=== PATIENT | female | born 1990 | race Two or more races ===

== ENCOUNTER 2022-07-08 11:07 | Emergency (ER) | payer OTHER ==
[~2022-07-08] VITALS: Ht 149.9 cm; Wt 69.4 kg
[2022-07-08] MEDS ORDERED: PRENA1 TRUE CO1 EACH PO (11:25)
== END 2022-07-08 19:37 | disposition home or self-care (01) ==
LOC: ER 11:07
DX: O20.9 Hemorrhage in early pregnancy, unspecified (principal); Z3A.00 Weeks of gestation of pregnancy not specified

== ENCOUNTER → 2023-12-30 08:11 | Outpatient (CLI) | payer OTHER ==
[~2023-12-30 08:11] MED LIST: PRENA1 TRUE CO1 EACH PO
== END | disposition home or self-care (01) ==
LOC: PRENATAL 08:11
PROVIDERS: ATTEND Obstetrics & Gynecology Maternal & Fetal Medicine
DX: O35.9XX0 Maternal care for (suspected) fetal abnormality and damage, unspecified, not applicable or unspecified (principal); O35.3XX0 Maternal care for (suspected) damage to fetus from viral disease in mother, not applicable or unspecified; O44.02 Complete placenta previa NOS or without hemorrhage, second trimester; Z3A.20 20 weeks gestation of pregnancy

== ENCOUNTER 2024-02-19 09:12 | Outpatient (CLI) | payer OTHER | END 2024-02-19 09:13 | disposition home or self-care (01) | LOC: PRENATAL 09:12 | PROVIDERS: ATTEND Obstetrics & Gynecology Maternal & Fetal Medicine | DX: O26.849 Uterine size-date discrepancy, unspecified trimester (principal); O24.419 Gestational diabetes mellitus in pregnancy, unspecified control; Z3A.28 28 weeks gestation of pregnancy ==

== ENCOUNTER 2024-03-19 09:19 | Outpatient (CLI) | payer OTHER | END 2024-03-19 09:20 | disposition home or self-care (01) | LOC: PRENATAL 09:19 | PROVIDERS: ATTEND Obstetrics & Gynecology Maternal & Fetal Medicine | DX: O26.849 Uterine size-date discrepancy, unspecified trimester (principal); O36.8199 Decreased fetal movements, unspecified trimester, other fetus; O24.419 Gestational diabetes mellitus in pregnancy, unspecified control; Z3A.33 33 weeks gestation of pregnancy ==

== ENCOUNTER 2024-04-15 10:10 | Outpatient (CLI) | payer OTHER | END 2024-04-15 10:11 | disposition home or self-care (01) | LOC: PRENATAL 10:10 | PROVIDERS: ATTEND Obstetrics & Gynecology Maternal & Fetal Medicine | DX: O26.849 Uterine size-date discrepancy, unspecified trimester (principal); O36.8199 Decreased fetal movements, unspecified trimester, other fetus; O24.419 Gestational diabetes mellitus in pregnancy, unspecified control; Z3A.36 36 weeks gestation of pregnancy ==

== ENCOUNTER 2024-05-06 17:29 | Inpatient (IN) | payer OTHER ==
[~2024-05-06] VITALS: Ht 152.4 cm; Wt 80.3 kg
[2024-05-06 17:40] VITALS: BP 134/75
[2024-05-06 18:03] VITALS: BP 134/75
[2024-05-06] MEDS ORDERED: AMPICILLIN SODIUM 2,000 MG VIAL IV SCH (18:19)
[2024-05-06 18:39] LABS: PH,URINE 6.5 (5.0-8.0); URINE APPEARANCE Cloudy; URINE BILIRRUBIN Negative (NEGATIVE); URINE BLOOD Negative; URINE COLOR Yellow; URINE GLUCOSE Negative (NEGATIVE); URINE KETONE Trace (NEGATIVE); URINE LEUKOCYTE Large; URINE NITRATE Negative
[2024-05-06 18:40] LABS: HEMATOCRIT 33.9 % (36.0-45.00); HEMOGLOBIN 11.4 g/dL (12.0-15.00); MEAN CORPUSCULAR HEMOGLOBIN 28.9 pg (27.00-32.0); MEAN CORPUSCULAR HGB CONC 33.6 g/dl (32.0-36.0); PLATELET COUNT 193 K/uL (150-450); RED BLOOD COUNT 3.94 M/uL (4.00-6.00)
[2024-05-06 18:43] LABS: URINE CAST 1.47 uL (0.0-1.40); URINE RBC 9.4 uL (0.0-20.8); URINE WBC 709.8 uL (0.0-23.2)
[2024-05-06 18:57] LABS: URINE BACTERIA > 9821.5 uL (0.0-1933); URINE EPITHELIAL CELLS > 201.7 uL (0.0-38.8); URINE PROTEIN 100 (NEGATIVE)
[2024-05-06 18:59] LABS: INR < 0.93; PARTIAL THROMBOPLASTIN TIME 23.5 SECONDS (22.0-34.0); PROTHROMBIN TIME 9.3 SECONDS (9.0-11.5)
[2024-05-06 19:03] LABS: ALBUMIN 2.4 gm/dL (3.4-5.0); BILIRUBIN TOTAL 0.31 mg/dL (0.3-1.2); CALCIUM 8.9 mg/dL (8.5-10.1); CREATININE SERUM 0.7 mg/dL (0.55-1.02); GFR 95.79; GLOBULINA 3.7 G/DL (2.4-3.5); POTASSIUM 4.48 mEq/L (3.5-5.1); TOTAL PROTEIN 6.1 gm/dL (6.4-8.2)
[2024-05-06] MEDS ORDERED: MISOPROSTOL 25 MCG TABLET VAG ONE (19:10)
[2024-05-06 23:16] VITALS: BP 139/74
[2024-05-07 04:00] VITALS: BP 113/67
[2024-05-07 07:22] VITALS: BP 123/67
[2024-05-07] MEDS ORDERED: OXYTOCIN 500 ML IV SCH (07:45)
[2024-05-07 11:24] VITALS: BP 127/76
[2024-05-07 15:00] VITALS: BP 112/51
[2024-05-07 19:12] VITALS: BP 136/82
[2024-05-07] MEDS ORDERED: CEFOXITIN SODIUM 2,000 MG VIAL IV SCH (21:30)
[2024-05-07] MEDS ORDERED: MORPHINE SULFATE 4 MG/ML CARTRIDGE IV PRN (23:00)
[2024-05-07] MEDS ORDERED: ONDANSETRON HCL 2 MG/ML VIAL IV PRN (23:00)
[2024-05-07] MEDS ORDERED: OXYTOCIN 1,000 ML IV SCH (23:00)
[2024-05-07] MEDS ORDERED: OXYTOCIN 10 UNITS/ML VIAL IV ONE (23:45)
[2024-05-07] MEDS ORDERED: ERYTHROMYCIN BASE OPHT 1GM EACH TUBE OP ONE (23:45)
[2024-05-07] MEDS ORDERED: MORPHINE SULFATE 4 MG/ML VIAL IV ONE (23:55)
[2024-05-08] MEDS ORDERED: MORPHINE SULFATE 4 MG/ML VIAL IV ONE (00:25)
[2024-05-08 03:00] VITALS: BP 127/73
[2024-05-08 03:55] LABS: HEMATOCRIT 31.7 % (36.0-45.00); HEMOGLOBIN 10.8 g/dL (12.0-15.00); MEAN CELL VOLUME 85.6 fL (80.00-100.00); MEAN CORPUSCULAR HEMOGLOBIN 29.1 pg (27.00-32.0); MEAN CORPUSCULAR HGB CONC 34.1 g/dl (32.0-36.0); PLATELET COUNT 211 K/uL (150-450); RED CELL DISTRIBUTION WIDTH 14.8 % (11.5-14.5)
[2024-05-08 08:00] VITALS: BP 120/68
[2024-05-08] MEDS ORDERED: PROMETHAZINE HCL 50 MG/ML AMPUL IV SCH (08:47)
[2024-05-08] MEDS ORDERED: SIMETHICONE 125 MG CAPSULE PO SCH (09:00)
[2024-05-08] MEDS ORDERED: NAPROXEN 500 MG TABLET PO SCH (09:00)
[2024-05-08] MEDS ORDERED: ACETAMINOPHEN WITH CODEINE 1 UDTAB TABLET PO PRN (12:00)
[2024-05-08] MEDS ORDERED: ACETAMINOPHEN WITH CODEINE 1 UDTAB TABLET PO SCH (12:00)
[2024-05-08 16:00] VITALS: BP 102/65
[2024-05-09 01:29] VITALS: BP 105/65
[2024-05-09 08:49] VITALS: BP 110/72
[2024-05-09 15:44] VITALS: BP 105/68
[2024-05-10 00:55] VITALS: BP 138/85
[2024-05-10 08:08] VITALS: BP 131/86
[2024-05-10] MEDS ORDERED: Tylenol #3 PO (12:03)
[2024-05-10] MEDS ORDERED: NAPR500T14 PO (12:03)
== END 2024-05-10 12:08 | disposition home or self-care (01) | DRG 788 ==
LOC: LDR 17:29 → OB/GYN 17:29
PROVIDERS: Obstetrics & Gynecology; ADMIT Obstetrics & Gynecology; ATTEND Obstetrics & Gynecology
PROC: 4A1HXCZ Monitoring of Products of Conception, Cardiac Rate, External Approach (ICD-10-PCS; 2024-05-06)
PROC: 3E0P7VZ Introduction of Hormone into Female Reproductive, Via Natural or Artificial Opening (ICD-10-PCS; 2024-05-06)
PROC: 3E033VJ Introduction of Other Hormone into Peripheral Vein, Percutaneous Approach (ICD-10-PCS; 2024-05-07)
PROC: 10D00Z1 Extraction of Products of Conception, Low, Open Approach (ICD-10-PCS; principal; 2024-05-07 23:00)
DX: O62.1 Secondary uterine inertia (principal); O62.0 Primary inadequate contractions; Z3A.39 39 weeks gestation of pregnancy; Z37.0 Single live birth; Z20.822 Contact with and (suspected) exposure to COVID-19